=== PATIENT | male | born 1985 | race Caucasian/White ===

== ENCOUNTER 2021-08-10 12:36 | Emergency (ER) | payer OTHER ==
[2021-08-10 12:56] VITALS: BP 135/89; PULSE 71; TEMP 97.5; BMI 30.8
== END 2021-08-10 15:12 | disposition home or self-care (01) ==
LOC: JER 12:36
DX: R07.9 Chest pain, unspecified (principal)
CPT/HCPCS: 71046-TC-FY; 93005; 93010; 99283-25; C9803; U0003; U0005